=== PATIENT | male | born 1965 | race Hispanic/Latino ===

== ENCOUNTER 2024-06-03 11:22 | Emergency (ER) | payer SELFPAY ==
[2024-06-03] MEDS ORDERED: CEFTRIAXONE 1000 MG/VIAL ONE (11:41)
[2024-06-03] MEDS ORDERED: NA CHLORIDE 0.9% 1,000 ML ONE (11:41)
[2024-06-03] MEDS ORDERED: NA CHLORIDE 0.9% 50 ML ONE (11:42)
[2024-06-03] MEDS ORDERED: dilTIAZem HCL 25 MG/5 ML VIAL IV ONE ×3 (11:43→14:20)
[2024-06-03 12:10] LABS: Absolute Basophils 0.1 K/uL (0-0.5); Absolute Eosinophils 0.2 K/uL (0-0.5); Absolute Lymphocytes (CBC) 2.3 K/uL (0.7-4.9); Absolute Neutrophil 4.9 K/uL (1.8-8.0); Basophils % 0.8 % (0-1.3); Eosinophils % 2.5 % (0-4.4); Hematocrit 40.6 % (39.6-49.0); Hemoglobin 13.8 g/dL (13.6-17.9); Lymphocytes % 27.1 % (15.3-44.8); MCH 33.6 pg (27.0-35.0); MCV 98.8 fL (80-100); Monocytes % 11.2 % (3.3-12.3); Neutrophils % 58.4 % (41.7-73.7); Nucleated Red Blood Cells % 0.1 % (0-0); Platelets 109 thou/uL (152-406); RBC Red Blood Cell Count 4.11 M/uL (4.33-5.43); Red Cell Distribution Width 15.3 % (12.1-15.2)
[2024-06-03 12:14] LABS: PT Prothrombin Time 20.1 SECONDS (9.4-12.5); PTT, Activated Partial Thromb 39.4 SECONDS (24.3-36.9); Protime INR 1.83
[2024-06-03 12:26] LABS: Albumin 2.3 g/dL (3.4-5.0); Albumin/Globulin Ratio 0.4 (1.1-1.8); Anion Gap 9.2 mEq/L (5.0-15.0); Bilirubin Total 8.1 mg/dL (0.2-1.0); Potassium 3.2 mEq/L (3.5-5.1); Protein, Total 8.3 g/dL (6.4-8.2)
[2024-06-03 12:27] LABS: Albumin 2.3 g/dL (3.4-5.0); Albumin/Globulin Ratio 0.4 (1.1-1.8); Bilirubin Direct 3.7 mg/dL (0-0.2); Bilirubin Indirect, Calculated 4.3 mg/dL (0.2-0.8); Globulin 5.9 g/dL (2.3-3.5); Protein, Total 8.2 g/dL (6.4-8.2)
--- NOTE | 2024-06-03 12:51 | RAD REPORT ---
Procedure: Chest Single View HISTORY: Cough COMPARISON: 2013 FINDINGS: The lungs appear clear of acute infiltrate. No significant pleural effusion noted. The heart is normal size. IMPRESSION: No acute abnormality is displayed.
[2024-06-03] MEDS ORDERED: NA CHLORIDE 0.9% 2,000 ML ONE (13:04)
[2024-06-03] MEDS ORDERED: NA CHLORIDE 0.9% 250 ML ONE (13:04)
--- NOTE | 2024-06-03 13:28 | RAD REPORT ---
EXAM: Right upper quadrant ultrasound. CLINICAL HISTORY: COMPARISON: CT abdomen June 03, 2024 FINDINGS: Cirrhotic liver. Hepatopedal flow. The patient's known stones within the neck of the gallbladder are poorly visualized on this exam. Gal lbladder wall is not significantly thickened. Mild gallbladder wall thickening probably related to hypoalbuminemia Biliary tree normal caliber Large amount ascites IMPRESSION: Cholelithiasis Cirrhosis Large amount of ascites
--- NOTE | 2024-06-03 13:29 | RAD REPORT ---
EXAMINATION: CT ABDOMEN AND PELVIS WITH CONTRAST CLINICAL INDICATION: Abdominal pain TECHNIQUE: CT abdomen and pelvis was performed, after the administration of 100 cc Isovue-300.. Sagit billy and coronal reconstructions were obtained. One or more of the following dose reduction techniques were used: Automated exposure control, adjustment of the mA and kV according to patient si ze, and iterative reconstruction. Unless otherwise specified, incidental findings do not require dedicated imaging follow-up. [id number]. Oral contrast was not given which limits evaluation of bowel and appendix. COMPARISON: none FINDINGS: Small bilateral pleural effusions Cirrhotic liver. Spleen mildly enlarged. Pancreas, adrenals and kidneys unremarkable Gallstones. Gallbladder wall is mildly thickened probably related to hypoalbuminemia. Large amount of ascites There is no evidence of diverticulitis : IMPRESSION: Cirrhosis with large amount ascites. Cholelithiasis without suspicion of cholecystitis
[2024-06-03] MEDS ORDERED: POTASSIUM CL SA 10 MEQ TAB PO ONE (13:30)
[2024-06-03] MEDS ORDERED: Magnesium Sulfate 2gm IVPB 2 G/50 ML BAG IV ONE (13:30)
[2024-06-03] MEDS ORDERED: KCL 20 MEQ/100 mL IVPB 100 ML IV ONE (13:30)
--- NOTE | 2024-06-03 13:32 | EDPHYS ---
Physician Documentation [facility] Name: Charli Conrad Age: 58 yrs Sex: Male : 1965 Arrival Date: 06/03/2024 Time: 11:22 Bed 2 Private MD: ED Physician Angus Valles HPI: 06/03 11:43 This 58 yrs old Male presents to ER via Ambulatory with complaints of Stomach ec2 pain x4days. 11:43 Patient arrives today for evaluation of abdominal pain. Patient reports onset for 4 ec2 days. Patient reports associated nausea as well. Patient reports no previous history of abdominal pathology, no previous abdominal surgeries. Patient reports no previous gallbladder or liver pathology. Patient reports he was a daily drinker up until 6 months ago and drank approximately 12-18 beers per day.. Historical: - Allergies: 11:35 No Known Allergies; ll1 - Home Meds: 11:35 None [Active]; ll1 - PMHx: 11:35 None; ll1 - Immunization history:: Adult Immunizations up to date. - Infectious Disease History:: Denies. - Social history:: Smoking status: Patient denies any tobacco usage or history of. ROS: 11:43 Constitutional: as per hpi ec2 Exam: 11:43 Constitutional: GEN: NAD Head: atraumatic Eyes: EOMI, scleral icterus noticed. Ears: ec2 External ears are normal. CV: regular rate LUNGS: no respiratory distress ABD: Distended, generally tender, not guarding, not rigid. SKIN: no evidence of rashes, jaundice noted MSK: no evidence of trauma Vital Signs: 11:33 BP 156 / 99; Pulse 147; Resp 24; Temp 97; Pulse Ox 96% on R/A; Weight 107.95 kg; Height ll1 6 ft. 1 in. ; Pain 7/10; 12:05 BP 139 / 83; Pulse 146; Pulse Ox 98% on R/A; ap3 12:49 BP 156 / 93; Pulse 96; Pulse Ox 96% on R/A; ap3 13:23 BP 136 / 79; Pulse 96; Resp 22; Pulse Ox 97% on R/A; ap3 14:37 BP 133 / 77; Pulse 108; Resp 18; Pulse Ox 97% on R/A; ll1 15:28 BP 128 / 68; Pulse 103; Resp 17; Temp 97.2; Pulse Ox 98% ; ap3 11:33 Body Mass Index 31.40 (107.95 kg, 185.42 cm) ll1 11:33 Pain Scale: Adult ll1 Procedures: 13:58 Paracentesis: The risks and benefits of the procedure were discussed with the patient ec2 or guardian in detail, aseptic technique was employed throughout the procedure, the catheter was placed in the right lower quadrant, appoximately 0.05 liters of fluid was removed, the fluid was serous, the patient tolerated the procedure well, the patient did not experience any apparent complications. MDM: 11:26 Patient medically screened. kb 11:44 Data reviewed: vital signs. ED course: Patient arrives today for evaluation of ec2 abdominal pain. Examination remarkable for tachycardic individual with abdominal wall is distended with general tenderness. Will obtain a septic workup and empirically treat with ceftriaxone. Differential includes processes such as hepatitis, CBD blockage, electrolyte disturbances, anemia.. 11:45 ED course: EKG independently reviewed and interpreted by me, shows atrial flutter with ec2 a 2-1 conduction block, rate of 146, no acute ST segment elevations, intervals are nonactionable. Will give the patient 10 mg of diltiazem given the patient's a flutter. No history of arrhythmia, not on blood thinners. . 12:31 ED course: CBC is reassuring. No marked leukocytosis. Metabolic profile shows slight ec2 hypokalemia 3.2. Marked elevation in the total bilirubin at 8.1. Patient with poor synthetic function and INR of 1.83. LFTs are otherwise nonactionable with a slight AST elevation of 56. Ammonia within normal ranges. . 13:22 ED course: Patient with improvement in tachycardia after 25 mg of diltiazem. Repeat EKG ec2 independently reviewed and interpreted by me, shows atrial flutter with a rate of 99, no acute ST segment elevations, intervals are pertinent for QTc prolongation of 590. Does have hypokalemia, will supplement magnesium and potassium. . 14:03 ED course: Patient with recurrence of a flutter with rapid ventricular response with a ec2 rate in the 110s to 120. will start on dilt gtt. 14:07 ED course: I discussed case with the rock star who agrees to consult and ec2 transfer the patient.. 14:24 ED course: I discussed case with the clinical biochemist who agrees to except patient for ec2 transfer. Patient and family updated regarding plan of care. . 06/03 11:31 Order name: CBC with Diff; Complete Time: 12:30 ec2 06/03 11:31 Order name: CMP; Complete Time: 12:30 ec2 06/03 11:31 Order name: Lipase; Complete Time: 12:30 ec2 06/03 11:35 Order name: Blood Culture Adult (2) ec2 06/03 11:35 Order name: Lactate w/ 2H reflex if indic.; Complete Time: 12:44 ec2 06/03 11:35 Order name: Protime (+inr); Complete Time: 12:30 ec2 06/03 11:35 Order name: Ptt, Activated; Complete Time: 12:30 ec2 06/03 11:35 Order name: LFT's; Complete Time: 12:30 ec2 06/03 11:41 Order name: Hep Panel ec2 06/03 11:43 Order name: AMMONIA; Complete Time: 12:30 ec2 06/03 12:40 Order name: GLUCOSE, PERITONEAL FLUID EDMS 06/03 12:40 Order name: TOTAL PROTEIN,PERITONEAL FLUID EDMS 06/03 14:21 Order name: Body Fluid Cell Count EDMS 06/03 14:21 Order name: Body Fluid Culture EDTN 06/03 14:22 Order name: Anaerobic Culture EDTN 06/03 14:30 Order name: Ghost Lactate-NO COLLECT Timer EDTN 06/03 11:35 Order name: Chest Single View XRAY; Complete Time: 12:57 ec2 06/03 11:36 Order name: CT Abd/Pelvis - IV Contrast Only; Complete Time: 13:30 ec2 06/03 11:42 Order name: US Abdomen Limited; Complete Time: 13:30 ec2 06/03 11:35 Order name: EKG; Complete Time: 11:35 ec2 06/03 11:31 Order name: IV Saline Lock; Complete Time: 12:05 ec2 06/03 11:31 Order name: Labs collected and sent; Complete Time: 12:05 ec2 06/03 11:35 Order name: Accucheck; Complete Time: 12:05 ec2 06/03 11:35 Order name: Cardiac monitoring; Complete Time: 11:39 ec2 06/03 11:35 Order name: EKG - Nurse/Tech; Complete Time: 11:39 ec2 06/03 11:35 Order name: IV Saline Lock - Large Bore; Complete Time: 12:04 ec2 06/03 11:35 Order name: O2 Per Protocol; Complete Time: 11:37 ec2 06/03 11:35 Order name: O2 Sat Monitoring; Complete Time: 11:37 ec2 06/03 11:35 Order name: Vital Signs; Complete Time: 11:37 ec2 06/03 13:16 Order name: EKG - Nurse/Tech; Complete Time: 13:22 ec2 Administered Medications: 11:55 Drug: Diltiazem IVP 10 mg IVP once; Over 2 minutes Route: IVP; Site: right antecubital; mb9 13:02 Follow up: Response: No adverse reaction; Cardiac rhythm is unchanged ap3 11:57 Drug: Rocephin IV 1 grams IV at calculated rate once; Given slow IV push per pharmacy ap3 instructions Route: IV; Rate: calculated rate; Site: right antecubital; 13:40 Follow up: Response: No adverse reaction; IV Status: Completed infusion mb9 11:57 Drug: NS 0.9% IV 1000 ml IV at 1000 ml once; to be given as a bolus over 60 minutes ap3 Route: IV; Rate: 1000 ml; Site: right antecubital; 13:40 Follow up: Response: No adverse reaction; IV Status: Completed infusion mb9 12:47 Drug: Diltiazem IVP 25 mg IVP once; Over 2 minutes Route: IVP; Site: right antecubital; ap3 13:02 Follow up: Response: No adverse reaction; Cardiac rhythm changed ap3 13:22 Drug: NS 0.9% IV 2250 ml IV at 1 bolus Per protocol; to be given as a bolus over 60 ap3 minutes Route: IV; Rate: 1 bolus; Site: right antecubital; 15:20 Follow up: Response: No adverse reaction; IV Status: Completed infusion mb9 13:39 Drug: Magnesium Sulfate IVPB 2 grams IVPB once over 30 mins Route: IVPB; Infused Over: mb9 30 mins; Site: right antecubital; 15:20 Follow up: Response: No adverse reaction; IV Status: Completed infusion mb9 13:39 Drug: Potassium Chloride IV 20 mEq IV at calculated rate once; administer over 1-2 mb9 hours Route: IV; Rate: calculated rate; Site: right antecubital; 15:19 Follow up: Response: No adverse reaction; IV Status: Completed infusion mb9 13:39 Drug: Potassium Chloride PO 40 mEq PO once Route: PO; mb9 15:20 Follow up: Response: No adverse reaction mb9 14:37 Drug: Diltiazem IVP 10 mg IVP once; Over 2 minutes Route: IVP; Site: left antecubital; ll1 15:20 Follow up: Response: No adverse reaction mb9 15:19 Drug: Diltiazem IV 5 mg/hr IV at calculated rate See Administration Instructions; mb9 (standard dilution 125 mg diltiazem mixed in 125 mL NS; final concentration 1mg/mL). Recommended max rate 15 mg/hr; Titrate 5 mg/hr as often as every 15 minutes to achieve goal (see titration policy); Goal parameter HR less than 100 bpm Route: IV; Rate: calculated rate; Site: right antecubital; 15:20 Follow up: Response: No adverse reaction; IV Status: Infusion continued upon transfer mb9 15:35 Drug: Viscous Lidocaine Mucous Membrane Liquid (4 %) 10 ml Mucous Membrane once Route: ap3 Mucous Membrane; 15:35 Follow up: Response: Medication administered at discharge. ap3 Disposition Summary: 06/03/24 13:31 Transfer Ordered Notes: Transfer Location: Other Acute Care Facility ec2 Reason: Higher level of care ec2 Condition: Stable ec2 Problem: new ec2 Symptoms: have improved ec2 Accepting Physician: DR. JYOTI DASH(06/03/24 15:38) ap3 Diagnosis - Decompensate Liver Failure ec2 - Unspecified jaundice ec2 - Scleral Icterus ec2 - Typical atrial flutter ec2 Forms: - Medication Reconciliation Form ec2 - SBAR form ec2 Critical care time excluding procedures: 14:24 Critical care time: Bedside Care: 50 minutes, Consultation: 10 minutes. Total time: 60 ec2 minutes Signatures: Dispatcher [employer] Ileana Amador FNP-C FNP-Ckb Prokisch, Amanda, RN RN ap3 Claudia Alfonso Lynsay, RN RN ll1 Noy Coronado RN RN mb9 Angus Valles MD MD ec2 Corrections: (The following items were deleted from the chart) 11:32 11:32 CBC+H.LAB.BRZ ordered. EDMS EDMS 11:32 11:32 COMPREHENSIVE METABOLIC PANEL+C.LAB.BRZ ordered. EDMS EDMS 11:32 11:32 LIPASE+C.LAB.BRZ ordered. EDMS EDMS 11:32 11:32 Urinalysis+U.LAB.BRZ ordered. EDMS EDMS 11:35 11:35 BLOOD CULTURE*+BA.LAB.BRZ ordered. EDMS EDMS 11:35 11:35 LACTATE+C.LAB.BRZ ordered. EDMS EDMS 11:35 11:35 PROTIME (+INR)+COAG.LAB.BRZ ordered. EDMS EDMS 11:36 11:35 PTT, ACTIVATED+COAG.LAB.BRZ ordered. EDMS EDMS 11:36 11:35 HEPATIC FUNCTION+C.LAB.BRZ ordered. EDMS EDMS 11:36 11:36 Abdomen Pelvis W Con+CT.RAD.BRZ ordered. EDMS EDMS 15:00 13:31 transferring doc ec2 eb 15:38 15:00 DR. JYOTI DASH eb ap3
--- NOTE | 2024-06-03 13:32 | ER ---
Nurse's Notes [facility] Name: Charli Conrad Age: 58 yrs Sex: Male : 1965 Arrival Date: 06/03/2024 Time: 11:22 Bed 2 Private MD: Diagnosis: Decompensate Liver Failure;Unspecified jaundice;Scleral Icterus;Typical atrial flutter Presentation: 06/03 11:33 Chief complaint: Patient states: Stomach bloating and pain for 2-3 days with some ll1 diarrhea. Coronavirus screen: Client denies travel out of the [place] in the last 14 days. At this time, the client does not indicate any symptoms associated with coronavirus-19. Ebola Screen: Patient denies travel to an Ebola-affected area in the 21 days before illness onset. Initial Sepsis Screen: Does the patient meet any 2 criteria? RR > 20 per min. HR > 90 bpm. Does the patient have a suspected source of infection? No. Patient's initial sepsis screen is negative. Risk Assessment: Do you want to hurt yourself or someone else? Patient reports no desire to harm self or others. Onset of symptoms was June 01, 2024. 11:33 Method Of Arrival: Ambulatory ll1 11:33 Acuity: [place] 2 ll1 Triage Assessment: 11:35 General: Appears distressed, uncomfortable, Behavior is calm, cooperative, appropriate ll1 for age. Pain: Complains of pain in abdomen Quality of pain is described as aching, pressure. Cardiovascular: Denies palpitations, HR noted to be 140-150. GI: Reports lower abdominal pain, upper abdominal pain, bloating, diarrhea. Historical: - Allergies: 11:35 No Known Allergies; ll1 - Home Meds: 11:35 None [Active]; ll1 - PMHx: 11:35 None; ll1 - Immunization history:: Adult Immunizations up to date. - Infectious Disease History:: Denies. - Social history:: Smoking status: Patient denies any tobacco usage or history of. Screenin:07 Abuse screen: Denies threats or abuse. Nutritional screening: No deficits noted. ap3 Tuberculosis screening: No symptoms or risk factors identified. 15:00 [facility] ED Fall Risk Assessment (Adult) History of falling in the last 3 months, ap3 including since admission No falls in past 3 months (0 pts) Confusion or Disorientation No (0 pts) Intoxicated or Sedated No (0 pts) Impaired Gait No (0 pts) Mobility Assist Device Used No (0 pt) Altered Elimination No (0 pt) Score/Fall Risk Level 0 - 2 = Low Risk Oriented to surroundings, Maintained a safe environment, Educated pt \T\ family on fall prevention, incl call for assistance when getting out of bed, Assessed \T\ reinforced patient's understanding of fall precautions, Hourly rounding (assess needs \T\ fall precautionary measures) done, Used ambulatory aids as needed (educated on \T\ assisted with), Used gait belt as appropriate. Assessment: 12:05 Reassessment: ultrasound at bedside. General: Appears uncomfortable. Pain: Complains of ap3 pain in abdomen. Neuro: Level of Consciousness is awake, alert, obeys commands, Oriented to person, place, time, situation, Appropriate for age Gait is steady, Speech is normal. Cardiovascular: Patient's skin is warm and dry. Respiratory: Airway is patent Respiratory effort is even, unlabored, Respiratory pattern is regular, symmetrical. GI: Abdomen is round distended. 13:22 Reassessment: Patient and/or family updated on plan of care and expected duration. Pain ap3 level reassessed. Patient is alert, oriented x 3, equal unlabored respirations, skin warm/dry/pink. General: Appears in no apparent distress. comfortable, Behavior is calm, cooperative, appropriate for age. Neuro: Level of Consciousness is awake, alert, obeys commands, Oriented to person, place, time, situation. 15:00 Reassessment: No changes from previously documented assessment. Patient and/or family mb9 updated on plan of care and expected duration. Pain level reassessed. Patient is alert, oriented x 3, equal unlabored respirations, skin warm/dry/pink. 15:21 Reassessment: Report given to EMS. mb9 Vital Signs: 11:33 BP 156 / 99; Pulse 147; Resp 24; Temp 97; Pulse Ox 96% on R/A; Weight 107.95 kg; Height ll1 6 ft. 1 in. ; Pain 7/10; 12:05 BP 139 / 83; Pulse 146; Pulse Ox 98% on R/A; ap3 12:49 BP 156 / 93; Pulse 96; Pulse Ox 96% on R/A; ap3 13:23 BP 136 / 79; Pulse 96; Resp 22; Pulse Ox 97% on R/A; ap3 14:37 BP 133 / 77; Pulse 108; Resp 18; Pulse Ox 97% on R/A; ll1 15:28 BP 128 / 68; Pulse 103; Resp 17; Temp 97.2; Pulse Ox 98% ; ap3 11:33 Body Mass Index 31.40 (107.95 kg, 185.42 cm) ll1 11:33 Pain Scale: Adult ll1 ED Course: 11:25 Patient arrived in ED. ra3 11:26 Ileana Huber FNP-C is PHCP. kb 11:26 Angus Valles MD is Attending Physician. kb 11:27 Arm band placed on Patient placed in an exam room, on a stretcher. ll1 11:35 Triage completed. ll1 11:39 Mahogany Monahan, RN is Primary Nurse. ap3 11:45 Initial lab(s) drawn, by ED staff, sent to lab. EKG done, by ED staff, reviewed by mbShayan Valles MD. Inserted saline lock: 20 gauge in right antecubital area, using aseptic technique. Blood collected. Flushed with 10 mL NS. 11:54 First set of blood cultures drawn by me. em1 12:03 AMMONIA Sent. em1 12:03 Hep Panel Sent. em1 12:03 LFT's Sent. em1 12:03 Blood Culture Adult (2) Sent. em1 12:03 Lactate w/ 2H reflex if indic. Sent. em1 12:03 Protime (+inr) Sent. em1 12:03 Ptt, Activated Sent. em1 12:03 CBC with Diff Sent. em1 12:03 CMP Sent. em1 12:03 Lipase Sent. em1 12:07 Patient has correct armband on for positive identification. Bed in low position. Call ap3 light in reach. Side rails up X2. Adult w/ patient. Provided Education on: medications prior to administration . Client placed on continuous cardiac and pulse oximetry monitoring. NIBP monitoring applied. groundwater monitoring technician on. Pulse ox on. NIBP on. 12:30 Notified ED physician of a critical lab result(s). lactate 3.4. ll1 12:34 US Abdomen Limited In Process Unspecified. EDMS 12:48 Chest Single View XRAY In Process Unspecified. EDMS 13:05 CT Abd/Pelvis - IV Contrast Only In Process Unspecified. EDMS 13:22 EKG done, by ED staff, reviewed by Angus Valles MD. ap3 13:58 initiated a transfer with JJ from the [facility]. eb 14:[address] Mark Mckeon the director hair resource protection specialist for [facility] with Dr. patricia Valles for patient transfer consultation. 14:[address] Grabiel West the [employer] Manager Product Design with Dr. Valles for patient transfer eb consultation. 14:24 administrative approval given by Len Son [facility]/ patient has been accepted to [facility] [id number]/ Dr. Grabiel West has accepted the patient in transfer/ report to be called to [phone]. 14:37 Inserted saline lock: 22 gauge in left antecubital area, using aseptic technique. ll1 Flushed with 10 mL NS. 15:00 No provider procedures requiring assistance completed. ap3 15:21 Patient transferred, IV remains in place. mb9 Administered Medications: 11:55 Drug: Diltiazem IVP 10 mg IVP once; Over 2 minutes Route: IVP; Site: right antecubital; mb9 13:02 Follow up: Response: No adverse reaction; Cardiac rhythm is unchanged ap3 11:57 Drug: Rocephin IV 1 grams IV at calculated rate once; Given slow IV push per pharmacy ap3 instructions Route: IV; Rate: calculated rate; Site: right antecubital; 13:40 Follow up: Response: No adverse reaction; IV Status: Completed infusion mb9 11:57 Drug: NS 0.9% IV 1000 ml IV at 1000 ml once; to be given as a bolus over 60 minutes ap3 Route: IV; Rate: 1000 ml; Site: right antecubital; 13:40 Follow up: Response: No adverse reaction; IV Status: Completed infusion mb9 12:47 Drug: Diltiazem IVP 25 mg IVP once; Over 2 minutes Route: IVP; Site: right antecubital; ap3 13:02 Follow up: Response: No adverse reaction; Cardiac rhythm changed ap3 13:22 Drug: NS 0.9% IV 2250 ml IV at 1 bolus Per protocol; to be given as a bolus over 60 ap3 minutes Route: IV; Rate: 1 bolus; Site: right antecubital; 15:20 Follow up: Response: No adverse reaction; IV Status: Completed infusion mb9 13:39 Drug: Magnesium Sulfate IVPB 2 grams IVPB once over 30 mins Route: IVPB; Infused Over: mb9 30 mins; Site: right antecubital; 15:20 Follow up: Response: No adverse reaction; IV Status: Completed infusion mb9 13:39 Drug: Potassium Chloride IV 20 mEq IV at calculated rate once; administer over 1-2 mb9 hours Route: IV; Rate: calculated rate; Site: right antecubital; 15:19 Follow up: Response: No adverse reaction; IV Status: Completed infusion mb9 13:39 Drug: Potassium Chloride PO 40 mEq PO once Route: PO; mb9 15:20 Follow up: Response: No adverse reaction mb9 14:37 Drug: Diltiazem IVP 10 mg IVP once; Over 2 minutes Route: IVP; Site: left antecubital; ll1 15:20 Follow up: Response: No adverse reaction mb9 15:19 Drug: Diltiazem IV 5 mg/hr IV at calculated rate See Administration Instructions; mb9 (standard dilution 125 mg diltiazem mixed in 125 mL NS; final concentration 1mg/mL). Recommended max rate 15 mg/hr; Titrate 5 mg/hr as often as every 15 minutes to achieve goal (see titration policy); Goal parameter HR less than 100 bpm Route: IV; Rate: calculated rate; Site: right antecubital; 15:20 Follow up: Response: No adverse reaction; IV Status: Infusion continued upon transfer mb9 15:35 Drug: Viscous Lidocaine Mucous Membrane Liquid (4 %) 10 ml Mucous Membrane once Route: ap3 Mucous Membrane; 15:35 Follow up: Response: Medication administered at discharge. ap3 Medication: 15:00 VIS not applicable for this client. ap3 Outcome: 13:31 ER care complete, transfer ordered by . ec2 15:26 Transferred by ground EMS to [facility], [facility] [place], ap3 15:26 Condition: good 15:26 Discharge instructions given to patient, family, Instructed on the need for transfer, 15:38 Patient left the ED. ap3 Signatures: Dispatcher [employer] EDIleana Gong FNP-C FNPIsabelPeterson Santiago em1 Mahogany Monahan RN RN ap3 Claudia Alfonso Lynsay, RN RN ll1 Cliff, Noy Pack, RN RN mb9 Angus Valles MD MD ec2 Estela Lackey ra3
[2024-06-03 14:57] LABS: Hepatitis B Core IgM Nonreactive (Nonreactive); Hepatitis B surface AG Interp. Nonreactive (Nonreactive); Hepatitis C Virus Ab Nonreactive (Nonreactive)
[2024-06-03 14:58] LABS: HBsAG Nonreactive Report Report
[2024-06-03] MEDS ORDERED: DILTIAZEM INJ 125 MG/25 ML 125 MG in NA CHLORIDE 0.9% 100 ML IV SCH (15:00)
[2024-06-03 15:32] LABS: Appearance SLT. TURBID (CLEAR); Body Fluid Source PERITONEAL; Color of Supernate Not Xanthochromic (Not Xantho); Color of fluid Yellow (COLORLESS); Tube # SINGLE
[2024-06-03] MEDS ORDERED: LIDOCAINE VISCOUS 2% 10ML ORAL SOLN ONE (15:32)
[2024-06-03 15:33] LABS: Body Fluid Lymphocytes 68 %; Body Fluid WBC 497 /mm^3; Fluid Total Cells Count 100
[2024-06-03 17:06] VITALS: BP 128/68; TEMP 97.2; O2SAT 98
== END 2024-06-03 15:38 ==
LOC: ER 11:22
DX: K72.90 Hepatic failure, unspecified without coma (principal); H15.89 Other disorders of sclera; I48.3 Typical atrial flutter
CPT/HCPCS: 36415; 71045; 74177; 76705; 80053; 80074; 80076; 82140; 82945; 83605; 83690; 84157; 85025; 85610; 85730; 87040; 87070; 87075; 87205; 89050; 93005; J0696; J3475; J3480; J7030; J7050; Q9967

== ENCOUNTER 2024-06-23 11:31 | Emergency (ER) | payer OTHER ==
--- NOTE | 2024-06-23 13:53 | ER ---
Nurse's Notes [facility] Name: Charli Conrad Age: 58 yrs Sex: Male : 1965 Arrival Date: 06/23/2024 Time: 11:31 Bed 7 Private MD: Diagnosis: Alcoholic cirrhosis of liver;Abdominal Distention Presentation: 06/23 11:50 Chief complaint: Worsening abdominal swelling x 2-3 days. Last paracentesis was 06/15 hb at [facility]. Coronavirus screen: At this time, the client does not indicate any symptoms associated with coronavirus-19. Ebola Screen: No symptoms or risks identified at this time. Initial Sepsis Screen: Does the patient meet any 2 criteria? No. Patient's initial sepsis screen is negative. Does the patient have a suspected source of infection? No. Patient's initial sepsis screen is negative. Risk Assessment: Do you want to hurt yourself or someone else? Patient reports no desire to harm self or others. Onset of symptoms was June 22, 2024. 11:50 Method Of Arrival: Ambulatory hb 11:50 Acuity: [place] 3 hb Historical: - Allergies: 11:51 No Known Allergies; hb - PMHx: 11:51 Cirrhosis of liver; hb - Immunization history:: Adult Immunizations up to date. - Infectious Disease History:: Denies. - Social history:: Smoking status: Patient denies any tobacco usage or history of. Screenin:52 [facility] ED Fall Risk Assessment (Adult) History of falling in the last 3 months, hb including since admission No falls in past 3 months (0 pts) Confusion or Disorientation No (0 pts) Intoxicated or Sedated No (0 pts) Impaired Gait No (0 pts) Mobility Assist Device Used No (0 pt) Altered Elimination No (0 pt) Score/Fall Risk Level 0 - 2 = Low Risk Oriented to surroundings, Maintained a safe environment, Educated pt \T\ family on fall prevention, incl call for assistance when getting out of bed. Abuse screen: Denies threats or abuse. Denies injuries from another. Nutritional screening: No deficits noted. Tuberculosis screening: No symptoms or risk factors identified. Assessment: 11:52 General: Appears in no apparent distress. Behavior is calm, cooperative. Pain: Denies hb pain. Neuro: Level of Consciousness is awake, alert, obeys commands, Oriented to person, place, time, situation. Cardiovascular: Patient's skin is warm and dry. Respiratory: Respiratory effort is even, unlabored, Respiratory pattern is regular, symmetrical. GI: Reports abdominal swelling. : No signs and/or symptoms were reported regarding the genitourinary system. EENT: No signs and/or symptoms were reported regarding the EENT system. Derm: Skin is dry, Skin is jaundiced, Skin temperature is warm. Musculoskeletal: No signs and/or symptoms reported regarding the musculoskeletal system. Vital Signs: 11:50 BP 141 / 82; Pulse 86; Resp 18; Temp 97.8(O); Pulse Ox 100% on R/A; Weight 106.59 kg; hb Height 6 ft. 1 in. ; Pain 0/10; 11:52 BP 122 / 73; ec2 13:24 BP 122 / 66; Pulse 80; Resp 18; Pulse Ox 100% on R/A; mb9 11:50 Body Mass Index 31.00 (106.59 kg, 185.42 cm) hb 11:50 Pain Scale: Adult hb ED Course: 11:33 Patient arrived in ED. im 11:42 Angus Valles MD is Attending Physician. ec2 11:49 Britni Rubio RN is Primary Nurse. hb 11:51 Triage completed. hb 11:52 Arm band placed on. hb 11:52 Patient has correct armband on for positive identification. Provided Education on: use hb of call light . 13:23 Assisted provider with: paracentesis. 3.5 L removed. mb9 13:24 Patient did not have IV access during this emergency room visit. mb9 13:40 Abdomen Exam Limited In Process Unspecified. EDMS Administered Medications: No medications were administered Medication: 11:52 VIS not applicable for this client. hb Outcome: 13:52 Discharge ordered by . ec2 13:57 Discharged to home ambulatory, with family, iw 13:57 Condition: stable 13:57 Discharge instructions given to patient, Instructed on discharge instructions, follow up and referral plans. Demonstrated understanding of instructions, follow-up care, 13:57 Patient left the ED. iw Signatures: Dispatcher [employer] EDMS Antonia Abreu RN RN Britni Rubio RN RN Noy Coronado RN RN mb9 Farrah Fisher Angus Valles MD MD ec2 Corrections: (The following items were deleted from the chart) 13:24 13:09 Assisted provider with: paracentesis mb9 mb9
--- NOTE | 2024-06-23 13:53 | EDPHYS ---
Physician Documentation [facility] Name: Charli Conrad Age: 58 yrs Sex: Male : 1965 Arrival Date: 06/23/2024 Time: 11:31 Bed 7 Private MD: ED Physician Angus Valles HPI: 06/23 12:11 This 58 yrs old Male presents to ER via Ambulatory with complaints of ec2 Paracentesis. 12:11 Patient arrives today d/t concern for abd swelling. recent dx of cirrhosis, was ec2 previously undergoing paracentesis while hospitalized at [facility] location. No difficulty breathing, no significant abd pain. reports persistent abd swelling. . Historical: - Allergies: 11:51 No Known Allergies; hb - PMHx: 11:51 Cirrhosis of liver; hb - Immunization history:: Adult Immunizations up to date. - Infectious Disease History:: Denies. - Social history:: Smoking status: Patient denies any tobacco usage or history of. ROS: 12:11 Constitutional: as per hpi ec2 Exam: 12:11 Constitutional: GEN: NAD Head: atraumatic Eyes: EOMI Ears: External ears are ec2 normal. CV: regular rate LUNGS: no respiratory distress ABD: Abdominal distention without tenderness or guarding SKIN: no evidence of rashes MSK: no evidence of trauma Vital Signs: 11:50 BP 141 / 82; Pulse 86; Resp 18; Temp 97.8(O); Pulse Ox 100% on R/A; Weight 106.59 kg; hb Height 6 ft. 1 in. ; Pain 0/10; 11:52 BP 122 / 73; ec2 13:24 BP 122 / 66; Pulse 80; Resp 18; Pulse Ox 100% on R/A; mb9 11:50 Body Mass Index 31.00 (106.59 kg, 185.42 cm) hb 11:50 Pain Scale: Adult hb Procedures: 13:28 Paracentesis: The risks and benefits of the procedure were discussed with the patient ec2 or guardian in detail, aseptic technique was employed throughout the procedure, the catheter was placed in the right lower quadrant, appoximately 3.5 liters of fluid was removed, the fluid was normal, the patient tolerated the procedure well, the patient did not experience any apparent complications. MDM: 11:47 Medical Screening Exam initiated ec2 12:11 Data reviewed: vital signs. ED course: Patient arrives today for evaluation of ec2 abdominal distention. Examination remarkable for abdominal findings as above. Discussed case with social work who is attempting to set up outpatient paracentesis. 13:28 ED course: Unable to set up outpatient therapy, I personally drained 2.5 L after ec2 discussing risk and benefits and he was agreeable. Patient is to follow-up outpatient with GI.. 06/23 13:40 Order name: Abdomen Exam Limited EDMS Administered Medications: No medications were administered Disposition Summary: 06/23/24 13:52 Discharge Ordered Notes: Location: Home ec2 Condition: Stable ec2 Diagnosis - Alcoholic cirrhosis of liver ec2 - Abdominal Distention ec2 Followup: ec2 - With: Private Physician - When: - Reason: Re-evaluation by your physician Discharge Instructions: - Discharge Summary Sheet ec2 - Paracentesis, Care After ec2 Forms: - Medication Reconciliation Form ec2 - Antibiotic Education ec2 - Prescription Opioid Use ec2 - Patient Portal Instructions ec2 - Leadership Thank You Letter ec2 Signatures: Dispatcher [employer] Britni Carlos RN RN Angus Orta MD MD ec2 Corrections: (The following items were deleted from the chart) 13:40 12:28 Paracentesis Proc Guidance ordered. ROCKYAZ GREG
--- NOTE | 2024-06-23 13:58 | RAD REPORT ---
EXAM: Limited abdominal ultrasound. CLINICAL HISTORY: paracentesis COMPARISON: None. FINDINGS: Sonography was provided for possible paracentesis. Moderate pocket of fluid seen in the rig ht lower quadrant.
[2024-06-23 14:02] VITALS: TEMP 97.8; O2SAT 100
[2024-06-23 14:03] VITALS: BP 122/66
== END 2024-06-23 13:57 | disposition home or self-care (01) ==
LOC: ER 11:31
PROC: 0W9G3ZX Drainage of Peritoneal Cavity, Percutaneous Approach, Diagnostic (ICD-10-PCS; principal; 2024-06-23)
DX: K70.30 Alcoholic cirrhosis of liver without ascites (principal)
CPT/HCPCS: 76705; 99282